=== PATIENT | female | born 1995 | race Two or more races ===

== ENCOUNTER 2021-05-01 15:27 | Outpatient (CLI) | payer OTHER | END 2021-05-01 16:52 | disposition home or self-care (01) | LOC: PRENATAL 15:27 | PROVIDERS: ATTEND Obstetrics & Gynecology Maternal & Fetal Medicine | DX: O36.80X0 Pregnancy with inconclusive fetal viability, not applicable or unspecified (principal); Z36.0 Encounter for antenatal screening for chromosomal anomalies ==

== ENCOUNTER 2021-05-29 09:11 | Outpatient (CLI) | payer OTHER | END 2021-05-29 10:30 | disposition home or self-care (01) | LOC: PRENATAL 09:11 | PROVIDERS: ATTEND Obstetrics & Gynecology Maternal & Fetal Medicine | DX: O26.849 Uterine size-date discrepancy, unspecified trimester (principal); O36.8310 Maternal care for abnormalities of the fetal heart rate or rhythm, first trimester, not applicable or unspecified; Z3A.17 17 weeks gestation of pregnancy ==

== ENCOUNTER 2021-06-19 16:22 | Emergency (ER) | payer OTHER ==
[~2021-06-19] VITALS: Ht 154.9 cm; Wt 67.6 kg
[2021-06-19] MEDS ORDERED: DICLEGIS DR 101 EACH (16:53)
== END 2021-06-20 10:44 | disposition home or self-care (01) ==
LOC: ER 16:22
DX: O26.892 Other specified pregnancy related conditions, second trimester (principal); Z3A.20 20 weeks gestation of pregnancy; R10.31 Right lower quadrant pain
CPT/HCPCS: 72195; 74181

== ENCOUNTER 2021-06-20 12:36 | Outpatient (CLI) | payer OTHER ==
[~2021-06-20 12:36] MED LIST: DICLEGIS DR 101 EACH
== END 2021-06-20 14:20 | disposition home or self-care (01) ==
LOC: PRENATAL 12:36
PROVIDERS: ATTEND Obstetrics & Gynecology Maternal & Fetal Medicine
DX: O35.0XX0 Maternal care for (suspected) central nervous system malformation in fetus, not applicable or unspecified (principal); O35.3XX0 Maternal care for (suspected) damage to fetus from viral disease in mother, not applicable or unspecified; Z3A.20 20 weeks gestation of pregnancy

== ENCOUNTER → 2021-08-14 | Outpatient (CLI) | payer OTHER | END | disposition home or self-care (01) | LOC: PRENATAL 14:00 | PROVIDERS: ATTEND Obstetrics & Gynecology Maternal & Fetal Medicine | DX: O26.849 Uterine size-date discrepancy, unspecified trimester (principal); O36.8310 Maternal care for abnormalities of the fetal heart rate or rhythm, first trimester, not applicable or unspecified; Z3A.28 28 weeks gestation of pregnancy ==

== ENCOUNTER 2021-10-01 08:55 | Outpatient (CLI) | payer OTHER | END 2021-10-01 10:25 | disposition home or self-care (01) | LOC: PRENATAL 08:55 | PROVIDERS: ATTEND Obstetrics & Gynecology Maternal & Fetal Medicine | DX: O26.849 Uterine size-date discrepancy, unspecified trimester (principal); O36.8310 Maternal care for abnormalities of the fetal heart rate or rhythm, first trimester, not applicable or unspecified; Z3A.34 34 weeks gestation of pregnancy ==

== ENCOUNTER 2021-10-26 12:00 | Inpatient (IN) | payer OTHER ==
[~2021-10-26] VITALS: Ht 154.9 cm; Wt 3.2 kg
[2021-10-30] MEDS ORDERED: IRON325 MG PO (07:59)
[2021-10-30] MEDS ORDERED: WELLBUTRIN XL300 MG PO (08:00)
[2021-10-30] MEDS ORDERED: DICLOFENAC SOD100 GM (11:34)
[2021-10-30] MEDS ORDERED: ONDANSETRON ODT8 MG (11:34)
[2021-10-30] MEDS ORDERED: ESCITALOPRAM OXA5 MG (11:34)
[2021-10-30] MEDS ORDERED: PROMETHEGAN25 MG (11:34)
[2021-10-30] MEDS ORDERED: FAMOTIDINE40 MG (11:34)
[2021-10-30] MEDS ORDERED: METRONIDAZOLE45 G1 (11:34)
[2021-11-03] MEDS ORDERED: PERCOCET 5-3251 EACH PO (11:52)
[2021-11-03] MEDS ORDERED: IBU800 MG PO (11:53)
== END 2021-11-03 13:36 | disposition home or self-care (01) | DRG 788 ==
LOC: LDR 10-30 07:47 → OB/GYN 10-30 07:47 → O/R 10-31 12:34 → OB/GYN 10-31 14:11
PROVIDERS: ADMIT Obstetrics & Gynecology; ATTEND Obstetrics & Gynecology
PROC: 3E0P7VZ Introduction of Hormone into Female Reproductive, Via Natural or Artificial Opening (ICD-10-PCS; 2021-10-30)
PROC: 4A1HXCZ Monitoring of Products of Conception, Cardiac Rate, External Approach (ICD-10-PCS; 2021-10-30)
PROC: 3E033VJ Introduction of Other Hormone into Peripheral Vein, Percutaneous Approach (ICD-10-PCS; 2021-10-31)
PROC: 10D00Z1 Extraction of Products of Conception, Low, Open Approach (ICD-10-PCS; principal; 2021-10-31 12:45)
DX: O61.0 Failed medical induction of labor (principal); O82 Encounter for cesarean delivery without indication; Z3A.39 39 weeks gestation of pregnancy; Z37.0 Single live birth; Z20.822 Contact with and (suspected) exposure to COVID-19

== ENCOUNTER 2023-01-21 05:11 | Day surgery (SDC) | payer OTHER ==
[2023-01-06 08:34] LABS: PH,URINE 7.5 (5.0-8.0); URINE APPEARANCE Clear; URINE BILIRRUBIN Negative (NEGATIVE); URINE BLOOD Negative; URINE COLOR Yellow; URINE GLUCOSE Negative (NEGATIVE); URINE LEUKOCYTE Negative; URINE NITRATE Negative; URINE PROTEIN Negative (NEGATIVE); URINE UROBILINOGEN 0.2 E.U./dl
[2023-01-06 08:38] LABS: URINE BACTERIA 74.3 uL (0.0-1933); URINE EPITHELIAL CELLS 6.1 uL (0.0-38.8); URINE WBC 2.4 uL (0.0-23.2)
[2023-01-06 08:42] LABS: HEMATOCRIT 35.3 % (36.0-45.00); HEMOGLOBIN 11.4 g/dL (12.0-15.00); MEAN CELL VOLUME 81.5 fL (80.00-100.00); MEAN CORPUSCULAR HEMOGLOBIN 26.2 pg (27.00-32.0); MEAN CORPUSCULAR HGB CONC 32.2 g/dl (32.0-36.0); PLATELET COUNT 199 K/uL (150-450); RED BLOOD COUNT 4.33 M/uL (4.00-6.00); RED CELL DISTRIBUTION WIDTH 16.2 % (11.5-14.5)
[2023-01-06 08:57] LABS: INR 1.02; PARTIAL THROMBOPLASTIN TIME 25.4 SECONDS (22.0-34.0); PROTHROMBIN TIME 10.7 SECONDS (9.0-11.5)
[2023-01-06 09:16] LABS: ALBUMIN 3.4 gm/dL (3.4-5.0); BILIRUBIN TOTAL 0.21 mg/dL (0.3-1.2); CALCIUM 8.8 mg/dL (8.5-10.1); CREATININE SERUM 0.76 mg/dL (0.55-1.02); GFR 90.62; GLOBULINA 3.4 G/DL (2.4-3.5); POTASSIUM 4.03 mEq/L (3.5-5.1); TOTAL PROTEIN 6.8 gm/dL (6.4-8.2)
[~2023-01-21 05:11] MED LIST changes: +CLONAZEPAM0.5 MG PO; +DICLOFENAC SOD100 GM; +ESCITALOPRAM OXA5 MG; +FAMOTIDINE40 MG; +IBU800 MG PO; +IRON325 MG PO; +METRONIDAZOLE45 G1; +ONDANSETRON ODT8 MG; +PAROXET PO; +PERCOCET 5-3251 EACH PO; +PROMETHEGAN25 MG; +WELLBUTRIN XL300 MG PO
== END 2023-01-21 12:00 | disposition home or self-care (01) ==
LOC: CIR.AMB 05:11
PROVIDERS: ATTEND Surgery
DX: K80.10 Calculus of gallbladder with chronic cholecystitis without obstruction (principal); K82.8 Other specified diseases of gallbladder; Z20.822 Contact with and (suspected) exposure to COVID-19